=== PATIENT | female | born 1945 | race African-American/Black ===

== ENCOUNTER 2016-05-19 19:27 | Emergency (ER) | payer MEDICARE, BC ==
[~2016-05-19] VITALS: Ht 162.6 cm; Wt 69.1 kg
[~2016-05-19 19:27] MED LIST: AZIT250T6 PO; CHEMO; LISINOP/HCTZ PO
[2016-05-19] MEDS ORDERED: LISI-662 PO (19:52)
[2016-05-19 21:13] LABS: BASOPHILS % (AUTO) 0.5 % (0.0-2.0); EOSINOPHILS % (AUTO) 0.1 % (1.0-6.0); HEMATOCRIT 39.6 % (36-46); HEMOGLOBIN 13.4 g/dL (12.0-16.0); LYMPHOCYTES # (AUTO) 0.8 K/uL (1.0-4.8); LYMPHOCYTES % (AUTO) 14.4 % (22.0-44.0); MEAN CORPUSCULAR HEMOGLOBIN 31.1 pg (26.0-34.0); MEAN CORPUSCULAR HGB CONC 33.9 G/dL (31.0-37.0); MEAN CORPUSCULAR VOLUME 92 fL (80-100); MONOCYTES # (AUTO) 0.5 K/uL (0.1-1.0); MONOCYTES % (AUTO) 9.6 % (2.0-9.0); NEUTROPHILS # (AUTO) 4.2 K/uL (1.8-7.7); NEUTROPHILS % (AUTO) 75.4 % (40.0-70.0); PLATELET COUNT (AUTO) 260 K/uL (150-450); RED BLOOD CELL COUNT(AUTO) 4.32 MIL/uL (4.00-5.20); RED CELL DISTRIBUTION WIDTH 12.6 % (11.5-14.5); WHITE BLOOD COUNT (AUTO) 5.6 K/uL (4.5-11.0)
[2016-05-19 21:25] LABS: ANION GAP 6 mmol/L (8-16); CALCIUM, TOTAL 9.1 mg/dL (8.8-10.5); CARBON DIOXIDE 28 mmol/L (22-29); CHLORIDE 100 mmol/L (98-107); CREATININE 0.98 mg/dL (0.60-1.30); GLOMERULAR FILTR. RATE CALC > 60 mL/min (>60); POTASSIUM 4.2 mmol/L (3.5-5.1); SODIUM SERUM 134 mmol/L (136-145); UREA NITROGEN, BLOOD 16 mg/dL (7-18)
[2016-05-19 21:30] LABS: ALANINE AMINOTRANSFERASE 24 U/L (12-78); ALBUMIN 2.9 g/dL (3.4-5.0); ASPARTATE AMINOTRANSFERASE 33 U/L (15-37); BILIRUBIN,TOTAL 0.9 mg/dL (0.1-1.0); CREATINE KINASE, TOTAL 74 U/L (26-192)
[2016-05-19 21:41] LABS: B-TYPE NATRIURETIC PEPTIDE 262 pg/mL (0-100)
[2016-05-19] MEDS ORDERED: IBUPROFEN 800 MG TABLET PO ONE (22:00)
[2016-05-20] MEDS ORDERED: CIPROFLOXACIN HCL 250 MG TABLET PO ONE (01:00)
[2016-05-20] MEDS ORDERED: HYDROCODONE/ACETAMINOPHEN 5-325 MG TABLET PO ONE (01:15)
[2016-05-20 01:19] VITALS: BP 117/80
[2016-05-20 01:28] LABS: ADD UA MICROSCOPIC YES; APPEARANCE,URINE CLOUDY (CLEAR); GLUCOSE, URINE (UA) NEGATIVE (NEGATIVE); KETONES,URINE TRACE mg/dL (NEGATIVE); LEUKOCYTE ESTERASE ,URINE MODERATE (NEGATIVE); OCCULT BLOOD,URINE NEGATIVE (NEGATIVE); PH,URINE 6.5 (5.0-8.0); PROTEIN,URINE POS 1+ (NEGATIVE)
[2016-05-20 01:36] LABS: RBC,URINE None Seen /HPF (0-2); SQUAMOUS EPITHELIAL CELL,UR Few /LPF (None Seen)
== END 2016-05-20 01:21 | disposition home or self-care (01) ==
LOC: EMS 19:35
DX: N39.0 Urinary tract infection, site not specified (principal); M54.5 Low back pain; I10 Essential (primary) hypertension; R53.1 Weakness
CPT/HCPCS: 87086; 93005; 99285

== ENCOUNTER 2016-08-16 18:05 | Emergency (ER) | payer MEDICARE, BC ==
[~2016-08-16] VITALS: Ht 162.6 cm; Wt 62.3 kg
[~2016-08-16 18:05] MED LIST changes: -AZIT250T6 PO; -CHEMO; +LISI-662 PO; -LISINOP/HCTZ PO
[2016-08-16] MEDS ORDERED: LOSA100T29 PO (18:28)
[2016-08-16 22:02] LABS: APPEARANCE,URINE CLOUDY (CLEAR); GLUCOSE, URINE (UA) NEGATIVE (NEGATIVE); KETONES,URINE NEGATIVE (NEGATIVE); LEUKOCYTE ESTERASE ,URINE MODERATE (NEGATIVE); OCCULT BLOOD,URINE TRACE (NEGATIVE); PH,URINE 5.5 (5.0-8.0); PROTEIN,URINE POS 1+ (NEGATIVE)
[2016-08-16 22:05] LABS: ADD UA MICROSCOPIC YES; HYALINE CASTS, URINE 0-2 /LPF (None Seen); SQUAMOUS EPITHELIAL CELL,UR Few /LPF (None Seen); WBC,URINE 26-50 /HPF (0-5)
[2016-08-16 22:07] VITALS: BP 157/94
[2016-08-16] MEDS ORDERED: HYDROmorphone 2 MG/ML SYRINGE IVP ONE (22:15)
== END 2016-08-16 22:28 | disposition home or self-care (01) ==
LOC: EMS 18:07
DX: N81.10 Cystocele, unspecified (principal); K92.1 Melena; I10 Essential (primary) hypertension
CPT/HCPCS: 87086; 99284

== ENCOUNTER 2016-11-14 05:49 | Emergency (ER) | payer MEDICARE, BC ==
[~2016-11-14] VITALS: Ht 163.8 cm; Wt 66.8 kg
[~2016-11-14 05:49] MED LIST changes: -LISI-662 PO; +LOSA100T29 PO
[2016-11-14] MEDS ORDERED: HYDR25TA84 PO (05:59)
[2016-11-14 06:37] LABS: BASOPHILS # (AUTO) 0.03 K/uL (0.00-0.20); EOSINOPHILS # (AUTO) 0.11 K/uL (0.00-0.70); EOSINOPHILS % (AUTO) 3.53 % (1.0-6.0); HEMATOCRIT 36.7 % (36-46); HEMOGLOBIN 12.5 g/dL (12.0-16.0); LYMPHOCYTES # (AUTO) 1.3 K/uL (1.0-4.8); LYMPHOCYTES % (AUTO) 42.1 % (22.0-44.0); MEAN CORPUSCULAR HEMOGLOBIN 32.2 pg (26.0-34.0); MEAN CORPUSCULAR VOLUME 95 fL (80-100); MONOCYTES # (AUTO) 0.3 K/uL (0.1-1.0); MONOCYTES % (AUTO) 11.2 % (2.0-9.0); NEUTROPHILS # (AUTO) 1.3 K/uL (1.8-7.7); NEUTROPHILS % (AUTO) 42.1 % (40.0-70.0); PLATELET COUNT (AUTO) 183 K/uL (150-450); RED BLOOD CELL COUNT(AUTO) 3.87 MIL/uL (4.00-5.20); RED CELL DISTRIBUTION WIDTH 13.5 % (11.5-14.5)
[2016-11-14 06:45] LABS: CALCIUM, TOTAL 8.8 mg/dL (8.8-10.5); CREATININE 1.2 mg/dL (0.60-1.30); POTASSIUM 3.9 mmol/L (3.5-5.1)
[2016-11-14 06:48] VITALS: BP 156/75
[2016-11-14 06:51] LABS: BILIRUBIN,TOTAL 0.4 mg/dL (0.1-1.0); TOTAL PROTEIN, SERUM 6.8 g/dL (6.4-8.2)
== END 2016-11-14 08:16 | disposition home or self-care (01) ==
LOC: EMS 05:51
DX: S86.912A Strain of unspecified muscle(s) and tendon(s) at lower leg level, left leg, initial encounter (principal); M21.42 Flat foot [pes planus] (acquired), left foot; M21.41 Flat foot [pes planus] (acquired), right foot; I10 Essential (primary) hypertension; Z85.3 Personal history of malignant neoplasm of breast; X58.XXXA Exposure to other specified factors, initial encounter; Y93.89 Activity, other specified; Y92.89 Other specified places as the place of occurrence of the external cause; Y99.9 Unspecified external cause status
CPT/HCPCS: 85379; 99284

== ENCOUNTER 2017-12-24 15:46 | Inpatient (IN) | payer MEDICARE, BC ==
[~2017-12-24] VITALS: Ht 162.6 cm; Wt 628.7 kg
[~2017-12-24 15:46] MED LIST changes: +HYDR25TA84 PO; +LOSA100T20 PO; -LOSA100T29 PO
[2017-12-24 16:13] LABS: BASOPHILS % (AUTO) 0.8 % (0.0-2.0); EOSINOPHILS % (AUTO) 1.1 % (1.0-6.0); HEMATOCRIT 37.8 % (36-46); HEMOGLOBIN 12.9 g/dL (12.0-16.0); LYMPHOCYTES # (AUTO) 1.4 K/uL (1.0-4.8); LYMPHOCYTES % (AUTO) 30.3 % (22.0-44.0); MEAN CORPUSCULAR HGB CONC 34.1 G/dL (31.0-37.0); MEAN CORPUSCULAR VOLUME 94 fL (80-100); MONOCYTES # (AUTO) 0.3 K/uL (0.1-1.0); MONOCYTES % (AUTO) 6.3 % (2.0-9.0); NEUTROPHILS # (AUTO) 2.8 K/uL (1.8-7.7); NEUTROPHILS % (AUTO) 61.5 % (40.0-70.0); PLATELET COUNT (AUTO) 189 K/uL (150-450); RED BLOOD CELL COUNT(AUTO) 4.03 MIL/uL (4.00-5.20); RED CELL DISTRIBUTION WIDTH 13.8 % (11.5-14.5)
[2017-12-24 16:23] LABS: ANION GAP 8 mmol/L (8-16); CALCIUM, TOTAL 9.3 mg/dL (8.8-10.5); CARBON DIOXIDE 25 mmol/L (22-29); CHLORIDE 110 mmol/L (98-107); CREATININE 1.07 mg/dL (0.60-1.30); GLUCOSE,RANDOM 127 mg/dL (70-110); POTASSIUM 3.8 mmol/L (3.5-5.1); SODIUM SERUM 143 mmol/L (136-145); UREA NITROGEN, BLOOD 27 mg/dL (7-18)
[2017-12-24 16:24] LABS: GLOMERULAR FILTR. RATE CALC > 60 mL/min (>60)
[2017-12-24 16:29] LABS: ALANINE AMINOTRANSFERASE 29 U/L (12-78); ALBUMIN 3.2 g/dL (3.4-5.0); ALKALINE PHOSPHATASE 59 U/L (46-116); ASPARTATE AMINOTRANSFERASE 29 U/L (15-37); BILIRUBIN,TOTAL 0.6 mg/dL (0.1-1.0); LIPASE 104 U/L (73-393); TOTAL PROTEIN, SERUM 7.3 g/dL (6.4-8.2)
[2017-12-24 16:39] LABS: B-TYPE NATRIURETIC PEPTIDE 1350 pg/mL (0-100)
[2017-12-24] MEDS ORDERED: LOSA50TA25 PO (16:41)
[2017-12-24] MEDS ORDERED: NITROGLYCERIN 2% (1 GM=INCH) PACKET TP ONE (16:45)
[2017-12-24] MEDS ORDERED: ASPIRIN 81 MG CHEWABLE TABLET PO ONE (16:45)
[2017-12-24 16:54] LABS: D-DIMER 1.32 mg/L FEU (0.00-0.50)
[2017-12-24] MEDS ORDERED: SODIUM CHLORIDE 0.9% 100 ML ONE (17:02)
[2017-12-24] MEDS ORDERED: IOVERSOL 350 MG/ML 100 ML VIAL ONE (17:02)
[2017-12-24 17:06] LABS: INR 1.1 (0.9-1.1)
[2017-12-24] MEDS ORDERED: LORazepam 2 MG/ML VIAL IVP ONE (18:00)
[2017-12-24] MEDS ORDERED: MORPHINE SULFATE 4 MG/ML SYRINGE IVP ONE (18:15)
[2017-12-24] MEDS ORDERED: NITROGLYCERIN 400 MCG/SUBLINGUAL SPRAY 4.9 GM BOTTLE SL ONE (18:15)
[2017-12-24] MEDS ORDERED: FUROSEMIDE 40 MG/4 ML VIAL IVP ONE (19:30)
[2017-12-24] MEDS ORDERED: ACETAMINOPHEN 325 MG TABLET PO PRN (19:45)
[2017-12-24] MEDS ORDERED: ONDANSETRON HCL 4 MG/2 ML VIAL IVP PRN ×2 (19:45→20:30)
[2017-12-24] MEDS ORDERED: 0.9% SODIUM CHLORIDE 10 ML SYRINGE IVP PRN ×2 (19:45→20:30)
[2017-12-24] MEDS ORDERED: MORPHINE SULFATE 2 MG/ML SYRINGE IVP PRN (20:30)
[2017-12-24] MEDS ORDERED: BISACODYL 10 MG RECTAL RECTAL SUPPOSITORY PR PRN (20:30)
[2017-12-24] MEDS ORDERED: HEPARIN SODIUM,PORCINE 5,000 UNITS/ML VIAL IVP ONE (20:30)
[2017-12-24] MEDS ORDERED: IPRATROPIUM BROMIDE 0.5 MG/2.5 ML NEB SOLUTION NEB PRN (20:30)
[2017-12-24] MEDS ORDERED: ALBUTEROL SULFATE 2.5 MG/0.5 ML NEB SOLUTION NEB PRN (20:30)
[2017-12-24] MEDS ORDERED: HEPARIN SODIUM,PORCINE 5,000 UNITS/ML VIAL IVP PRN ×2 (20:30)
[2017-12-24] MEDS: FUROSEMIDE 20 MG/2 ML VIAL IVP SCH (21:00)
[2017-12-24] MEDS: HydrALAZINE HCL 25 MG TABLET PO SCH (21:00)
[2017-12-24] MEDS: LOSARTAN POTASSIUM 50 MG TABLET PO SCH (21:00)
[2017-12-24 21:05] LABS: INR 1.1 (0.9-1.1)
[2017-12-24] MEDS: HEPARIN SODIUM 25000 UNITS/D5W 250 ML IV PRN (21:44)
[2017-12-25 01:05] LABS: APPEARANCE,URINE CLEAR (CLEAR); BILIRUBIN,URINE NEGATIVE (NEGATIVE); GLUCOSE, URINE (UA) NEGATIVE (NEGATIVE); KETONES,URINE NEGATIVE (NEGATIVE); LEUKOCYTE ESTERASE ,URINE NEGATIVE (NEGATIVE); NITRATE,URINE NEGATIVE (NEGATIVE); OCCULT BLOOD,URINE LARGE (NEGATIVE); PROTEIN,URINE NEGATIVE (NEGATIVE)
[2017-12-25 01:16] LABS: RBC,URINE 51-100 /HPF (0-2)
[2017-12-25 01:17] LABS: BACTERIA,URINE None Seen /HPF (None Seen); SQUAMOUS EPITHELIAL CELL,UR None Seen /LPF (None Seen); WBC,URINE None Seen /HPF (0-5)
[2017-12-25 01:40] VITALS: BP 138/76
[2017-12-25 04:55] VITALS: BP 131/88
[2017-12-25 06:20] LABS: BASOPHILS % (AUTO) 0.7 % (0.0-2.0); EOSINOPHILS % (AUTO) 0.3 % (1.0-6.0); HEMATOCRIT 35.3 % (36-46); LYMPHOCYTES # (AUTO) 0.8 K/uL (1.0-4.8); LYMPHOCYTES % (AUTO) 21.9 % (22.0-44.0); MEAN CORPUSCULAR HEMOGLOBIN 32.3 pg (26.0-34.0); MEAN CORPUSCULAR HGB CONC 34.1 G/dL (31.0-37.0); MEAN CORPUSCULAR VOLUME 95 fL (80-100); MONOCYTES # (AUTO) 0.2 K/uL (0.1-1.0); MONOCYTES % (AUTO) 5.6 % (2.0-9.0); NEUTROPHILS # (AUTO) 2.7 K/uL (1.8-7.7); NEUTROPHILS % (AUTO) 71.5 % (40.0-70.0); PLATELET COUNT (AUTO) 167 K/uL (150-450); RED BLOOD CELL COUNT(AUTO) 3.72 MIL/uL (4.00-5.20); RED CELL DISTRIBUTION WIDTH 13.9 % (11.5-14.5)
[2017-12-25 06:39] LABS: ALANINE AMINOTRANSFERASE 26 U/L (12-78); ALBUMIN 2.9 g/dL (3.4-5.0); ALKALINE PHOSPHATASE 48 U/L (46-116); ANION GAP 9 mmol/L (8-16); ASPARTATE AMINOTRANSFERASE 27 U/L (15-37); BILIRUBIN,TOTAL 0.6 mg/dL (0.1-1.0); CALCIUM, TOTAL 8.6 mg/dL (8.8-10.5); CARBON DIOXIDE 27 mmol/L (22-29); CHLORIDE 106 mmol/L (98-107); CHOL/HDL RATIO 2.3 (3.9-5.7); CHOLESTEROL 132 mg/dL (131-200); CREATININE 0.97 mg/dL (0.60-1.30); GLUCOSE,RANDOM 108 mg/dL (70-110); HDL CHOLESTEROL 58 mg/dL (40-60); LDL CHOL (CALC.) 69 mg/dL (0-130); POTASSIUM 3.6 mmol/L (3.5-5.1); SODIUM SERUM 142 mmol/L (136-145); TOTAL PROTEIN, SERUM 6.7 g/dL (6.4-8.2); TRIGLYCERIDES 23 mg/dL (15-150); UREA NITROGEN, BLOOD 24 mg/dL (7-18)
[2017-12-25 06:45] LABS: GLOMERULAR FILTR. RATE CALC > 60 mL/min (>60)
[2017-12-25 07:18] VITALS: BP 122/78
[2017-12-25] MEDS: HEPARIN SODIUM 25000 UNITS/D5W 250 ML IV PRN (08:10)
[2017-12-25] MEDS: PANTOPRAZOLE SODIUM 40 MG DR TABLET PO SCH (08:33)
[2017-12-25] MEDS: FUROSEMIDE 20 MG/2 ML VIAL IVP SCH (08:33)
[2017-12-25] MEDS: ASPIRIN 81 MG CHEWABLE TABLET PO SCH (08:34)
[2017-12-25] MEDS: HydrALAZINE HCL 25 MG TABLET PO SCH ×2 (09:00→20:29)
[2017-12-25] MEDS: LOSARTAN POTASSIUM 50 MG TABLET PO SCH ×2 (09:22→20:29)
[2017-12-25] MEDS: ACETAMINOPHEN 325 MG TABLET PO PRN ×2 (09:41→13:40)
[2017-12-25 11:59] VITALS: BP 130/78
[2017-12-25 15:10] VITALS: BP 111/61
[2017-12-25 19:25] VITALS: BP 130/73
[2017-12-25] MEDS: BUMETANIDE 1 MG TABLET PO SCH (20:29)
[2017-12-26 00:23] VITALS: BP 135/77
[2017-12-26] MEDS: HEPARIN SODIUM 25000 UNITS/D5W 250 ML IV PRN (00:41)
[2017-12-26 04:33] VITALS: BP 129/77
[2017-12-26 07:24] VITALS: BP 111/80
[2017-12-26] MEDS: BUMETANIDE 1 MG TABLET PO SCH ×2 (08:23→22:02)
[2017-12-26] MEDS: ASPIRIN 81 MG CHEWABLE TABLET PO SCH (08:23)
[2017-12-26] MEDS: PANTOPRAZOLE SODIUM 40 MG DR TABLET PO SCH (08:23)
[2017-12-26] MEDS: HydrALAZINE HCL 25 MG TABLET PO SCH (09:00)
[2017-12-26 09:34] VITALS: BP 120/89
[2017-12-26] MEDS: LOSARTAN POTASSIUM 50 MG TABLET PO SCH ×2 (09:41→22:02)
[2017-12-26 12:22] VITALS: BP 119/82
[2017-12-26] MEDS ORDERED: DOCUSATE SODIUM 100 MG CAPSULE PO PRN (12:30)
[2017-12-26] MEDS ORDERED: DiphenhydrAMINE HCL 50 MG CAPSULE PO PRN (17:15)
[2017-12-26] MEDS ORDERED: DiphenhydrAMINE HCL 25 MG CAPSULE PO PRN (17:30)
[2017-12-26 18:11] LABS: CHOL/HDL RATIO 2.5 (3.9-5.7); CHOLESTEROL 129 mg/dL (131-200); CREATINE KINASE, TOTAL 36 U/L (26-192); HDL CHOLESTEROL 52 mg/dL (40-60); LDL CHOL (CALC.) 60 mg/dL (0-130); TRIGLYCERIDES 85 mg/dL (15-150)
[2017-12-26 18:44] LABS: INR 1.1 (0.9-1.1); PROTHROMBIN TIME 11.2 SEC (9.4-11.6)
[2017-12-26 19:36] VITALS: BP 147/77
[2017-12-27 00:04] VITALS: BP 128/50
[2017-12-27 04:44] VITALS: BP 122/82
[2017-12-27 07:38] LABS: BASOPHILS % (AUTO) 0.7 % (0.0-2.0); EOSINOPHILS % (AUTO) 3.3 % (1.0-6.0); HEMOGLOBIN 13.9 g/dL (12.0-16.0); LYMPHOCYTES # (AUTO) 1.3 K/uL (1.0-4.8); LYMPHOCYTES % (AUTO) 36.2 % (22.0-44.0); MEAN CORPUSCULAR HEMOGLOBIN 32.3 pg (26.0-34.0); MEAN CORPUSCULAR HGB CONC 33.9 G/dL (31.0-37.0); MEAN CORPUSCULAR VOLUME 96 fL (80-100); MONOCYTES # (AUTO) 0.3 K/uL (0.1-1.0); MONOCYTES % (AUTO) 7.9 % (2.0-9.0); NEUTROPHILS # (AUTO) 1.9 K/uL (1.8-7.7); NEUTROPHILS % (AUTO) 51.9 % (40.0-70.0); PLATELET COUNT (AUTO) 181 K/uL (150-450); RED CELL DISTRIBUTION WIDTH 13.4 % (11.5-14.5)
[2017-12-27 07:49] LABS: ANION GAP 7 mmol/L (8-16); CARBON DIOXIDE 29 mmol/L (22-29); CHLORIDE 103 mmol/L (98-107); CREATINE KINASE, TOTAL 28 U/L (26-192); CREATININE 1.09 mg/dL (0.60-1.30); GLOMERULAR FILTR. RATE CALC 59 mL/min (>60); GLUCOSE,RANDOM 93 mg/dL (70-110); POTASSIUM 3.4 mmol/L (3.5-5.1); SODIUM SERUM 139 mmol/L (136-145); UREA NITROGEN, BLOOD 21 mg/dL (7-18)
[2017-12-27 07:50] LABS: B-TYPE NATRIURETIC PEPTIDE 737 pg/mL (0-100)
[2017-12-27 08:18] VITALS: BP 142/96
[2017-12-27] MEDS: ASPIRIN 81 MG CHEWABLE TABLET PO SCH (09:04)
[2017-12-27] MEDS: LOSARTAN POTASSIUM 50 MG TABLET PO SCH (09:05)
[2017-12-27] MEDS: BUMETANIDE 1 MG TABLET PO SCH (09:05)
[2017-12-27] MEDS: PANTOPRAZOLE SODIUM 40 MG DR TABLET PO SCH (09:05)
[2017-12-27 11:54] VITALS: BP 124/86
== END 2017-12-27 12:25 | disposition left against medical advice (07) | DRG 280 ==
LOC: EMS 15:46 → 5S 12-25 00:07
PROVIDERS: ADMIT Internal Medicine; ATTEND Internal Medicine
DX: I21.4 Non-ST elevation (NSTEMI) myocardial infarction (principal); I50.21 Acute systolic (congestive) heart failure; J96.00 Acute respiratory failure, unspecified whether with hypoxia or hypercapnia; I42.0 Dilated cardiomyopathy; J98.11 Atelectasis; I11.0 Hypertensive heart disease with heart failure; I50.9 Heart failure, unspecified; I25.9 Chronic ischemic heart disease, unspecified; M62.838 Other muscle spasm; Z79.899 Other long term (current) drug therapy; Z82.49 Family history of ischemic heart disease and other diseases of the circulatory system; Z85.3 Personal history of malignant neoplasm of breast; Z53.21 Procedure and treatment not carried out due to patient leaving prior to being seen by health care provider
CPT/HCPCS: 71275; 85379; 93005; 93306; 93970; 96374; 96375; 99285; J1644; J1940; J2060; J2270; J2405; J7050